=== PATIENT | male | born 1975 | race Caucasian/White ===

== ENCOUNTER 2017-07-12 20:02 | Emergency (ER) | payer OTHER ==
[~2017-07-12] VITALS: Ht 172.7 cm; Wt 73.9 kg
[~2017-07-12 20:02] MED LIST: AUGMENTIN500 MG PO; PERCOCET 5/31 TABLET PO; ZOFRAN4 MG PO
[2017-07-12 20:37] LABS: HEMATOCRIT 48.7 % (38.0-50.0); MCH 31.5 PG (29.0-34.0); MCHC 34.3 G/DL (30.0-36.0); MCV 91.7 FL (86-99); PLATELET COUNT 287 K/uL (156-360); RBC DIS.WIDTH-CV 12.5 % (11.8-14.6); RBC DIS.WIDTH-SD 41.9 % (39-53); RED BLOOD COUNT 5.31 M/uL (4.00-5.50); WHITE BLOOD COUNT 8.7 K/uL (4.1-10.2)
[2017-07-12 20:48] LABS: CHLORIDE 103 mEq/L (99-109); POTASSIUM 3.9 mEq/L (3.7-5.4); SODIUM 139 mEq/L (136-147)
[2017-07-12 20:50] LABS: GLUCOSE 112 mg/dL (70-99)
[2017-07-12 20:51] LABS: ANION GAP 7 MEQ/L (2-14)
[2017-07-12 20:54] LABS: GFR ESTIMATE (CALCULATED) > 59 mL/min/; UREA NITROGEN (BUN) 8 mg/dL (9-23)
[2017-07-12 20:58] LABS: TROP-I INTERPRETATION NEGATIVE; TROPONIN-I < 0.01 ng/mL (0.0-0.30)
[2017-07-13 00:04] LABS: TROP-I INTERPRETATION NEGATIVE; TROPONIN-I 0.02 ng/mL (0.0-0.30)
[2017-07-13] MEDS ORDERED: NAPROXEN500 MG PO (00:43)
[2017-07-13 00:52] VITALS: BP 102/71
== END 2017-07-13 05:37 | disposition home or self-care (01) ==
LOC: EME 20:02
PROVIDERS: Physician Assistant
DX: R07.9 Chest pain, unspecified (principal); Z90.49 Acquired absence of other specified parts of digestive tract
CPT/HCPCS: 71020; 80048; 84484; 85027; 93005; 99281; 99283